=== PATIENT | male | born 1965 | race Caucasian/White ===

== ENCOUNTER 2016-06-07 16:13 | Inpatient (IN) | payer OTHER ==
[~2016-06-07] VITALS: Ht 182.8 cm; Wt 91.8 kg
--- NOTE | ~2016-06-07 | ST ---
[place], [place] EXERCISE STRESS TEST REPORT NAME: TYESHA BARRY [facility] #: [id number] UNIT #: [id number] ROOM: 424 DOCTOR: SAMIRA PEREZ MD BIRTHDATE: [birth year] DOS: 06/08/2016 EXERCISE TREADMILL STRESS TEST REPORT REFERRING PHYSICIAN: Tye Lea DO INDICATION: Central chest pain. The patient underwent standard Carlos protocol treadmill stress test. The patient's baseline EKG showed sinus bradycardia with no ischemic changes. The patient's baseline heart rate was 48 with a blood pressure of 122/60. The patient's peak heart rate was 175 with a blood pressure 130/72, patient exercised total of 9 minutes and 30 seconds. The patient's peak heart rate was 175, which represents 104% of maximum predicted. The patient had no chest pain, no shortness of breath and no arrhythmias. The patient's peak metabolic and exertional capacity was 12.5 mets. SUMMARY OF FINDINGS: 1. Negative exercise treadmill to above average level. 2. Presley Treadmill score of 9.5 portending a low risk prognosis. SAMIRA PEREZ MD CM:STRESS:EXERCISE STRESS TEST REPORT [id number] SAMIRA PEREZ MD
[2016-06-07 16:20] VITALS: BP 157/91
[2016-06-07 16:48] LABS: BASO % 0.4 % (0.0-1.0); EOS # 0.2 10*3/uL (0.0-0.4); HEMATOCRIT 40.7 % (42.0-52.0); LYMPH # 1.5 10*3/uL (1.3-4.4); LYMPH % 28.3 % (27.0-41.0); MEAN CELL VOLUME 85.9 fl (80.0-94.0); MEAN CORPUSCULAR HGB 29.5 pg (27.0-31.0); MEAN CORPUSCULAR HGB CONC 34.4 g/dl (33.0-37.0); MEAN PLATELET VOLUME 10.6 fl (9.6-12.3); MONO # 0.3 10*3/uL (0.1-1.0); MONO % 6.1 % (3.0-9.0); NEUT # 3.2 10*3/uL (2.3-7.9); PLATELET COUNT AUTOMATED 191 10*3/uL (130-400); RED BLOOD COUNT 4.74 10*6/uL (4.50-5.90); WHITE BLOOD COUNT 5.3 10*3/uL (4.8-10.8)
[2016-06-07 16:54] VITALS: BP 133/85
[2016-06-07 16:57] LABS: PROTHROMBIN TIME 10.7 SECONDS (9.0-12.4)
[2016-06-07 17:07] LABS: ALBUMIN 4.1 gm/dl (3.1-4.5); ALKALINE PHOSPHATASE 54 U/L (45-117); BILIRUBIN, TOTAL 0.4 mg/dl (0.2-1.0); BUN 11 mg/dl (7-24); CARBON DIOXIDE 27 mmol/L (21-32); CHLORIDE 104 mmol/L (98-107); CPK 151 U/L (39-308); EST GLOM FILT AFRICAN AMERICAN > 60 ml/min; MAGNESIUM 2.1 mg/dL (1.5-2.1); SGOT/AST 57 IU/L (3-35); SGPT/ALT 148 U/L (12-78); SODIUM 140 mmol/L (136-145); TOTAL PROTEIN 7.1 gm/dL (6.4-8.2)
[2016-06-07 17:08] LABS: CKMB 1.1 ng/ml (0.5-3.6)
[2016-06-07 17:17] LABS: GLUCOSE 82 mg/dL (65-99); TROPONIN I < 0.015 ng/ml (<0.045)
[2016-06-07 18:42] VITALS: BP 149/82
[2016-06-07 19:37] VITALS: BP 118/71
[2016-06-07 20:00] VITALS: BP 141/88
[2016-06-08] VITALS: BP 127/78
[2016-06-08 00:47] LABS: CKMB 0.7 ng/ml (0.5-3.6); CPK 102 U/L (39-308); TROPONIN I < 0.015 ng/ml (<0.045)
[2016-06-08 05:43] LABS: CPK 83 U/L (39-308)
[2016-06-08 05:57] LABS: BASO % 0.6 % (0.0-1.0); EOS # 0.3 10*3/uL (0.0-0.4); EOS % 5.5 % (1.0-4.0); HEMATOCRIT 39.4 % (42.0-52.0); HEMOGLOBIN 13.5 g/dl (14.0-18.0); LYMPH # 1.8 10*3/uL (1.3-4.4); LYMPH % 37.3 % (27.0-41.0); MEAN CELL VOLUME 85.7 fl (80.0-94.0); MEAN CORPUSCULAR HGB 29.3 pg (27.0-31.0); MEAN CORPUSCULAR HGB CONC 34.3 g/dl (33.0-37.0); MEAN PLATELET VOLUME 10.9 fl (9.6-12.3); MONO # 0.4 10*3/uL (0.1-1.0); MONO % 9.3 % (3.0-9.0); NEUT # 2.2 10*3/uL (2.3-7.9); NEUT % 47.1 % (47.0-73.0); PLATELET COUNT AUTOMATED 178 10*3/uL (130-400); RED CELL DISTRI WIDTH 13.1 % (0-14.5); WHITE BLOOD COUNT 4.8 10*3/uL (4.8-10.8)
[2016-06-08 05:59] LABS: ALBUMIN 3.5 gm/dl (3.1-4.5); ALKALINE PHOSPHATASE 49 U/L (45-117); BILIRUBIN, TOTAL 0.6 mg/dl (0.2-1.0); BUN 11 mg/dl (7-24); CARBON DIOXIDE 31 mmol/L (21-32); CHLORIDE 107 mmol/L (98-107); CHOLESTEROL 159 mg/dL (<200); EST GLOM FILT AFRICAN AMERICAN > 60 ml/min; GLUCOSE 91 mg/dL (65-99); HDL CHOLESTEROL 49 mg/dl (40-60); LDL CHOLESTEROL 88 mg/dL (9-159); MAGNESIUM 2.1 mg/dL (1.5-2.1); PHOSPHOROUS 3.9 mg/dL (2.5-4.9); POTASSIUM 3.8 mmol/L (3.5-5.1); SGOT/AST 35 IU/L (3-35); SGPT/ALT 124 U/L (12-78); SODIUM 144 mmol/L (136-145); TOTAL PROTEIN 6.2 gm/dL (6.4-8.2); TRIGLYCERIDES 109 mg/dl (<150); VLDL CHOLESTEROL 22 mg/dL (6-40)
[2016-06-08 06:09] LABS: CKMB < 0.5 ng/ml (0.5-3.6); TROPONIN I < 0.015 ng/ml (<0.045)
[2016-06-08 07:38] LABS: FOLIC ACID 14.36 ng/mL (>5.38); VITAMIN D, 25-HYDROXY 24.2 ng/mL (30-100)
[2016-06-08 08:00] VITALS: BP 103/66
[2016-06-08 08:30] LABS: HEMOGLOBIN A1c 5.7 % (4.8-5.6)
[2016-06-08 12:00] VITALS: BP 105/70
[2016-06-08 12:43] LABS: CPK 91 U/L (39-308)
[2016-06-08 12:44] LABS: TROPONIN I < 0.015 ng/ml (<0.045)
[2016-06-09 06:17] LABS: HEPATITIS C VIRUS ANTIBODY <0.1 s/co (0.0-0.9)
== END 2016-06-08 13:49 | disposition home or self-care (01) | DRG 313 ==
LOC: ED 16:13 → EDHOLD 18:52 → 4E 18:52
PROVIDERS: Emergency Medicine; Hospitalist
PROC: 4A02XM4 Measurement of Cardiac Total Activity, External Approach (ICD-10-PCS; principal; 2016-06-08)
DX: R07.82 Intercostal pain (principal); R00.1 Bradycardia, unspecified; D64.9 Anemia, unspecified; E66.3 Overweight; Z87.891 Personal history of nicotine dependence; Z82.49 Family history of ischemic heart disease and other diseases of the circulatory system; Z84.89 Family history of other specified conditions; Z68.29 Body mass index [BMI] 29.0-29.9, adult